=== PATIENT | male | born 1970 | race African-American/Black ===

== ENCOUNTER 2018-01-08 12:00 | Inpatient (IN) | payer OTHER ==
[2018-01-08] MEDS ORDERED: NICOTINE POLACRILEX 2 MG GUM BUC PRN (13:03)
[2018-01-08] MEDS ORDERED: guaiFENesin/D-METHORPHAN HB 10 ML UNIT-DOSE CUPS PO PRN (13:03)
[2018-01-08] MEDS ORDERED: MENTHOL/PHENOL 1 EACH UD MM PRN (13:03)
[2018-01-08] MEDS ORDERED: ACETAMINOPHEN 325 MG TABLET (FP) PO PRN (13:03)
[2018-01-08] MEDS ORDERED: MAG HYDROX/AL HYDROX/SIMETH 30 ML UNIT-DOSE CUP PO PRN (13:03)
[2018-01-08] MEDS ORDERED: MAGNESIUM CITRATE 300 ML BOTTLE PO PRN (13:03)
[2018-01-08] MEDS ORDERED: MAGNESIUM HYDROX 2400MG/30ML ORAL SUSPENSION 30 ML CUP PO PRN (13:03)
[2018-01-08] MEDS ORDERED: P-EPHED 60MG/TRIPROLIDI 2.5MG TABLET PO PRN (13:03)
[2018-01-08] MEDS ORDERED: LOPERAMIDE HCL 2 MG CAPSULE PO PRN (13:03)
--- NOTE | 2018-01-08 13:09 | HP ---
DAWN RAMIREZ Rehab Assess/Revision - Vital signs Vital Signs: Vital Signs Period Temp Pulse Resp BP Sys/Hull Pulse Ox Last 24 Hr 98.2 F 76 19 143/100 - Findings Detox History & Physical reviewed: Yes Concur with findings: Yes Comments/Additional Findings: PATIENT'S MEDICAL / MEDICATION HISTORY REVIEWED PRIOR TO DISCHARGE FROM DETOX UNIT. PATIENT WAS DISCHARGED FROM DETOX UNIT TO BE TAKEN TO REHAB UNIT IN STABLE MEDICAL CONDITION. Inpatient Rehab Admission - Initial Determination Are CD services needed?: Yes Free of communicable disease: Yes Not in need of hospitalization: Yes - Rehab Admission Criteria Previous failed treatment: Yes Comorbidities: Yes Patient is meeting Inpatient Rehab admission criteria:: Yes ( )
--- NOTE | 2018-01-08 14:29 | HP ---
Psychiatrist Admission - Data Date of interview: 01/08/18 Admission source: 3N Identifying data: This is the second [facility] Inpatient Rehabilitation admission for this 47 years old single Black male, father of 4 children, unemployed on public assistance, homeless Medical History: Significant for hypertension and history of surgery for umbolical hernia epair. Smokes 6 cigarettes daily Psychiatric History: Denies history of previous psychiatric treatment Physical/Sexual Abuse/Trauma History: Denies history of emotional, physical or sexual abuse as well as DV relationship. No service Additional Comment: Reports history of multiple arrests including 3 felony convictions. Denies being on parole/probation at present Vital Signs: Vital Signs - 24 hr 01/08/18 12:45 Temperature 98.2 F Pulse Rate 76 Respiratory 19 Rate Blood Pressure 143/100 Allergies/Adverse Reactions: Allergies Allergy/AdvReac Type Severity Reaction Status Date / Time No Known Allergies Allergy Verified 01/03/18 16:46 Date of last physical exam: 01/03/18 Concur with the findings of this exam: Yes - Substance Abuse/Tx History Hx Alcohol Use: No Hx Substance Use: Yes Substance Use Type: Cocaine (Started using cocaine at age 23, consumes 4-6 vials daily. Last used on 01/02/18), Heroin (Started using heroin at age 23, consumes 10 nbags daily. Lastused on 01/03/18) Hx Substance Use Treatment: Yes (4 previous inpt detox & one inpt rehab admissions @ [facility]) Mental Status Exam - Mental Status Exam Alert and Oriented to: Time, Place, Person Cognitive Function: Fair Patient Appearance: Well Groomed Mood: Hopeful, Euthymic Affect: Appropriate Patient Behavior: Cooperative Speech Pattern: Clear Voice Loudness: Normal Thought Process: Intact, Goal Oriented Thought Disorder: Not Present Hallucinations: Denies Suicidal Ideation: Denies Homicidal Ideation: Denies Insight/Judgement: Fair Sleep: Poorly Appetite: Good Muscle strength/Tone: Normal Gait/Station: Normal Psychiatric Findings - Problem List (Katy 1, 2,3) (1) Opioid dependence Current Visit: No Status: Active (2) Cocaine dependence Current Visit: No Status: Chronic (3) Nicotine dependence Current Visit: No Status: Chronic (4) Substance-induced sleep disorder Current Visit: Yes Status: Acute (5) Essential hypertension Current Visit: No Status: Chronic Comment: reports not taking medications at this time - Initial Treatment Plan Initial Treatment Plan: 1) Start Melatonin 5 mg po HS prn for insomnia. 2) Monitor progress
[2018-01-08] MEDS: THIAMINE HCL 100 MG TABLET (FP) PO SCH (21:09)
[2018-01-08] MEDS: MELATONIN 5 MG TABLETS PO PRN (21:09)
[2018-01-09] MEDS ORDERED: hydrOXYzine PAMOATE 50 MG CAPSULE (FP) PO ONE (03:42)
--- NOTE | 2018-01-09 05:01 | PN ---
S Progress Note Note: Patient complained of withdrawal symptoms. Vital Signs Temperature 98.2 F 01/09/18 06:47 Pulse Rate 80 01/09/18 06:47 Respiratory Rate 18 01/09/18 06:47 Blood Pressure 147/96 01/09/18 06:47 O2 Sat by Pulse Oximetry (%) Action: Vistaril 50mg rablet oral ordered
[2018-01-09] MEDS: PRENATAL VITAMINS W/ FOLIC ACID TABLET (FP) PO SCH (09:58)
[2018-01-09] MEDS: LISINOPRIL 10 MG TABLET (FP) PO SCH (09:58)
[2018-01-09] MEDS: MINERAL OIL/PETROLAT/WATER TOPICAL CREAM 113 GM JAR TP SCH (09:59)
[2018-01-09] MEDS: NICOTINE 14 MG/24 HOURS TOPICAL PATCH TD SCH (09:59)
[2018-01-09] MEDS: THIAMINE HCL 100 MG TABLET (FP) PO SCH (21:34)
[2018-01-09] MEDS: MELATONIN 5 MG TABLETS PO PRN (21:34)
[2018-01-10] MEDS: hydrOXYzine PAMOATE 50 MG CAPSULE (FP) PO PRN ×4 (06:28→21:32)
[2018-01-10] MEDS: PRENATAL VITAMINS W/ FOLIC ACID TABLET (FP) PO SCH (10:06)
[2018-01-10] MEDS: LISINOPRIL 10 MG TABLET (FP) PO SCH (10:06)
[2018-01-10] MEDS: NICOTINE 14 MG/24 HOURS TOPICAL PATCH TD SCH (10:07)
[2018-01-10] MEDS: MINERAL OIL/PETROLAT/WATER TOPICAL CREAM 113 GM JAR TP SCH (10:08)
[2018-01-10] MEDS: MELATONIN 5 MG TABLETS PO PRN (21:32)
[2018-01-10] MEDS: THIAMINE HCL 100 MG TABLET (FP) PO SCH (21:32)
[2018-01-10] MEDS ORDERED: PT OWN MED DRAWER 7, Y5N ONE (22:04)
[2018-01-11] MEDS: IBUPROFEN 400 MG TABLET (FP) PO PRN (06:44)
[2018-01-11] MEDS ORDERED: PT OWN MED DRAWER 7, Y5N ONE (08:27)
[2018-01-11] MEDS: LISINOPRIL 10 MG TABLET (FP) PO SCH (09:32)
[2018-01-11] MEDS: PRENATAL VITAMINS W/ FOLIC ACID TABLET (FP) PO SCH (09:32)
[2018-01-11] MEDS: NICOTINE 14 MG/24 HOURS TOPICAL PATCH TD SCH (09:33)
[2018-01-11] MEDS: MINERAL OIL/PETROLAT/WATER TOPICAL CREAM 113 GM JAR TP SCH (09:35)
[2018-01-11] MEDS: THIAMINE HCL 100 MG TABLET (FP) PO SCH (21:08)
[2018-01-11] MEDS: hydrOXYzine PAMOATE 50 MG CAPSULE (FP) PO PRN (21:09)
[2018-01-12] MEDS: hydrOXYzine PAMOATE 50 MG CAPSULE (FP) PO PRN (06:07)
[2018-01-12] MEDS: IBUPROFEN 400 MG TABLET (FP) PO PRN (06:07)
[2018-01-12] MEDS ORDERED: PT OWN MED DRAWER 7, Y5N ONE (08:36)
[2018-01-12] MEDS: PRENATAL VITAMINS W/ FOLIC ACID TABLET (FP) PO SCH (09:35)
[2018-01-12] MEDS: NICOTINE 14 MG/24 HOURS TOPICAL PATCH TD SCH (09:35)
[2018-01-12] MEDS: LISINOPRIL 10 MG TABLET (FP) PO SCH (09:35)
[2018-01-12] MEDS: MINERAL OIL/PETROLAT/WATER TOPICAL CREAM 113 GM JAR TP SCH (09:36)
[2018-01-12] MEDS: THIAMINE HCL 100 MG TABLET (FP) PO SCH (21:33)
[2018-01-12] MEDS: SUVOREXANT 10 MG TABLET PO PRN (22:06)
[2018-01-12] MEDS ORDERED: cloNIDine HCL 0.1 MG TABLET PO ONE (23:15)
[2018-01-13] MEDS: NICOTINE 14 MG/24 HOURS TOPICAL PATCH TD SCH (09:57)
[2018-01-13] MEDS: LISINOPRIL 10 MG TABLET (FP) PO SCH (09:57)
[2018-01-13] MEDS: PRENATAL VITAMINS W/ FOLIC ACID TABLET (FP) PO SCH (09:57)
[2018-01-13] MEDS: MINERAL OIL/PETROLAT/WATER TOPICAL CREAM 113 GM JAR TP SCH (09:59)
[2018-01-13] MEDS: IBUPROFEN 400 MG TABLET (FP) PO PRN (09:59)
--- NOTE | 2018-01-13 14:53 | PN ---
[facility] Progress Note Note: PATIENT SEEN FOR EVALUATION OF ELEVATED BP. PATIENT DENIES CP, SOB AND DIZZINESS. PATIENT CURRENTLY HAS HTN AND TAKES LISINOPRIL 10MG DAILY. Vital Signs Temperature 97.3 F L 01/13/18 07:07 Pulse Rate 82 01/13/18 07:07 Respiratory Rate 18 01/13/18 07:07 Blood Pressure 122/90 01/13/18 07:07 O2 Sat by Pulse Oximetry (%) PE: SKIN WARM AND DRY CAR: S1S2 RESP: CTA BL EXT: NO EDEMA A/P: ELEVATED BP DIET MODIFICATIONS REVIEWED WILL INCREASE LISINOPRIL 20MG DAILY WILL CONTINUE TO MONITOR CLINICALLY.
[2018-01-13] MEDS: SUVOREXANT 10 MG TABLET PO PRN (21:38)
[2018-01-13] MEDS: hydrOXYzine PAMOATE 50 MG CAPSULE (FP) PO PRN (21:38)
[2018-01-13] MEDS: THIAMINE HCL 100 MG TABLET (FP) PO SCH (21:38)
[2018-01-13] MEDS: METHYL SALICYLATE/MENTHOL OINT 30 GM TUBE TP SCH (22:00)
[2018-01-14] MEDS: LISINOPRIL 20 MG TABLET (FP) PO SCH (09:55)
[2018-01-14] MEDS: NICOTINE 14 MG/24 HOURS TOPICAL PATCH TD SCH (09:55)
[2018-01-14] MEDS: PRENATAL VITAMINS W/ FOLIC ACID TABLET (FP) PO SCH (09:55)
[2018-01-14] MEDS: METHYL SALICYLATE/MENTHOL OINT 30 GM TUBE TP SCH ×2 (09:56→21:10)
[2018-01-14] MEDS: hydrOXYzine PAMOATE 50 MG CAPSULE (FP) PO PRN (09:56)
[2018-01-14] MEDS: MINERAL OIL/PETROLAT/WATER TOPICAL CREAM 113 GM JAR TP SCH (09:57)
[2018-01-14] MEDS: THIAMINE HCL 100 MG TABLET (FP) PO SCH (21:10)
[2018-01-14] MEDS: SUVOREXANT 10 MG TABLET PO PRN (21:12)
[2018-01-15] MEDS: METHYL SALICYLATE/MENTHOL OINT 30 GM TUBE TP SCH ×2 (11:02→21:32)
[2018-01-15] MEDS: NICOTINE 14 MG/24 HOURS TOPICAL PATCH TD SCH (11:02)
[2018-01-15] MEDS: MINERAL OIL/PETROLAT/WATER TOPICAL CREAM 113 GM JAR TP SCH (11:02)
[2018-01-15] MEDS: LISINOPRIL 20 MG TABLET (FP) PO SCH (11:02)
[2018-01-15] MEDS: PRENATAL VITAMINS W/ FOLIC ACID TABLET (FP) PO SCH (11:02)
[2018-01-15] MEDS: THIAMINE HCL 100 MG TABLET (FP) PO SCH (21:33)
[2018-01-15] MEDS: SUVOREXANT 10 MG TABLET PO PRN (21:34)
[2018-01-15] MEDS ORDERED: SUVOREXANT 10 MG TABLET PO PRN (22:00)
[2018-01-16] MEDS: METHYL SALICYLATE/MENTHOL OINT 30 GM TUBE TP SCH ×2 (10:07→21:42)
[2018-01-16] MEDS: NICOTINE 14 MG/24 HOURS TOPICAL PATCH TD SCH (10:07)
[2018-01-16] MEDS: LISINOPRIL 20 MG TABLET (FP) PO SCH (10:07)
[2018-01-16] MEDS: PRENATAL VITAMINS W/ FOLIC ACID TABLET (FP) PO SCH (10:07)
[2018-01-16] MEDS: MINERAL OIL/PETROLAT/WATER TOPICAL CREAM 113 GM JAR TP SCH (10:07)
--- NOTE | 2018-01-16 14:29 | PN ---
S Progress Note Note: Vital Signs (72 hours) 01/14/18 01/14/18 01/14/18 00:30 03:30 06:48 Temperature 97.6 F Pulse Rate 87 Respiratory 18 18 20 Rate Blood Pressure 135/88 01/14/18 01/14/18 01/15/18 10:00 12:24 00:30 Temperature Pulse Rate 95 H 77 Respiratory 20 18 Rate Blood Pressure 154/102 144/95 01/15/18 01/15/18 01/15/18 03:30 06:51 10:00 Temperature 97.6 F Pulse Rate 86 94 H Respiratory 18 20 18 Rate Blood Pressure 135/92 154/88 01/16/18 01/16/18 01/16/18 00:30 03:30 06:59 Temperature 98.2 F Pulse Rate 83 Respiratory 18 18 20 Rate Blood Pressure 149/91 01/16/18 10:00 Temperature Pulse Rate 94 H Respiratory 18 Rate Blood Pressure 162/101 Patient on lisinopril 20 mg qd with elevated BP. Will ad HCTZ 12.5 mg qd low sodium diet increase fluids continue to monitor
[2018-01-16] MEDS ORDERED: HYDROCHLOROTHIAZIDE 25 MG TABLET (FP) PO SCH (14:30)
[2018-01-16] MEDS: HYDROCHLOROTHIAZIDE 12.5 MG CAPSULE (FP) PO SCH (14:56)
[2018-01-16] MEDS: THIAMINE HCL 100 MG TABLET (FP) PO SCH (21:41)
[2018-01-17] MEDS: LISINOPRIL 20 MG TABLET (FP) PO SCH (10:09)
[2018-01-17] MEDS: hydrOXYzine PAMOATE 50 MG CAPSULE (FP) PO PRN ×2 (10:09→21:24)
[2018-01-17] MEDS: HYDROCHLOROTHIAZIDE 12.5 MG CAPSULE (FP) PO SCH (10:09)
[2018-01-17] MEDS: PRENATAL VITAMINS W/ FOLIC ACID TABLET (FP) PO SCH (10:09)
[2018-01-17] MEDS: NICOTINE 14 MG/24 HOURS TOPICAL PATCH TD SCH (10:10)
[2018-01-17] MEDS: METHYL SALICYLATE/MENTHOL OINT 30 GM TUBE TP SCH ×2 (10:28→21:23)
[2018-01-17] MEDS: MINERAL OIL/PETROLAT/WATER TOPICAL CREAM 113 GM JAR TP SCH (10:28)
[2018-01-17] MEDS ORDERED: PT OWN MED DRAWER 7, Y5N ONE (18:34)
[2018-01-17] MEDS: THIAMINE HCL 100 MG TABLET (FP) PO SCH (21:23)
[2018-01-18] MEDS: NICOTINE 14 MG/24 HOURS TOPICAL PATCH TD SCH (09:34)
[2018-01-18] MEDS: HYDROCHLOROTHIAZIDE 12.5 MG CAPSULE (FP) PO SCH (09:34)
[2018-01-18] MEDS: LISINOPRIL 20 MG TABLET (FP) PO SCH (09:34)
[2018-01-18] MEDS: PRENATAL VITAMINS W/ FOLIC ACID TABLET (FP) PO SCH (09:34)
[2018-01-18] MEDS: METHYL SALICYLATE/MENTHOL OINT 30 GM TUBE TP SCH ×2 (09:35→23:15)
[2018-01-18] MEDS: MINERAL OIL/PETROLAT/WATER TOPICAL CREAM 113 GM JAR TP SCH (09:35)
--- NOTE | 2018-01-18 15:39 | PN ---
[facility] Progress Note Note: Psychiatry Attending's note : Called for renewal of belsomra. Chart reviewed.Dose verified. No report of adverse effects. Continuation requested by the patient. Informed consent : revisited with patient.\ Mr Bartlett is in agreement with careplan. Belsomra 10 mg po hs prn.Order renewed.
[2018-01-18] MEDS: THIAMINE HCL 100 MG TABLET (FP) PO SCH (21:24)
[2018-01-18] MEDS: hydrOXYzine PAMOATE 50 MG CAPSULE (FP) PO PRN (21:25)
[2018-01-18] MEDS ORDERED: SUVOREXANT 10 MG TABLET PO PRN (22:00)
[2018-01-19] MEDS: PRENATAL VITAMINS W/ FOLIC ACID TABLET (FP) PO SCH (09:48)
[2018-01-19] MEDS: NICOTINE 14 MG/24 HOURS TOPICAL PATCH TD SCH (09:49)
[2018-01-19] MEDS: HYDROCHLOROTHIAZIDE 12.5 MG CAPSULE (FP) PO SCH (09:49)
[2018-01-19] MEDS: MINERAL OIL/PETROLAT/WATER TOPICAL CREAM 113 GM JAR TP SCH (09:49)
[2018-01-19] MEDS: LISINOPRIL 20 MG TABLET (FP) PO SCH (09:49)
[2018-01-19] MEDS: METHYL SALICYLATE/MENTHOL OINT 30 GM TUBE TP SCH ×2 (09:49→22:00)
[2018-01-19] MEDS ORDERED: PT OWN MED DRAWER 7, Y5N ONE (20:04)
[2018-01-19] MEDS: THIAMINE HCL 100 MG TABLET (FP) PO SCH (22:00)
[2018-01-19] MEDS: hydrOXYzine PAMOATE 50 MG CAPSULE (FP) PO PRN (22:01)
[2018-01-20] MEDS ORDERED: PT OWN MED DRAWER 7, Y5N ONE ×2 (08:33→19:52)
[2018-01-20] MEDS: HYDROCHLOROTHIAZIDE 12.5 MG CAPSULE (FP) PO SCH (10:04)
[2018-01-20] MEDS: METHYL SALICYLATE/MENTHOL OINT 30 GM TUBE TP SCH ×2 (10:04→21:35)
[2018-01-20] MEDS: MINERAL OIL/PETROLAT/WATER TOPICAL CREAM 113 GM JAR TP SCH (10:04)
[2018-01-20] MEDS: NICOTINE 14 MG/24 HOURS TOPICAL PATCH TD SCH (10:05)
[2018-01-20] MEDS: LISINOPRIL 20 MG TABLET (FP) PO SCH (10:05)
[2018-01-20] MEDS: PRENATAL VITAMINS W/ FOLIC ACID TABLET (FP) PO SCH (10:05)
[2018-01-20] MEDS: hydrOXYzine PAMOATE 50 MG CAPSULE (FP) PO PRN (21:36)
[2018-01-20] MEDS: THIAMINE HCL 100 MG TABLET (FP) PO SCH (21:36)
[2018-01-21] MEDS: HYDROCHLOROTHIAZIDE 12.5 MG CAPSULE (FP) PO SCH (10:13)
[2018-01-21] MEDS: LISINOPRIL 20 MG TABLET (FP) PO SCH (10:13)
[2018-01-21] MEDS: PRENATAL VITAMINS W/ FOLIC ACID TABLET (FP) PO SCH (10:13)
[2018-01-21] MEDS: METHYL SALICYLATE/MENTHOL OINT 30 GM TUBE TP SCH ×2 (10:14→22:01)
[2018-01-21] MEDS: MINERAL OIL/PETROLAT/WATER TOPICAL CREAM 113 GM JAR TP SCH (10:14)
[2018-01-21] MEDS: NICOTINE 14 MG/24 HOURS TOPICAL PATCH TD SCH (10:14)
--- NOTE | 2018-01-21 12:53 | HP ---
DAWN RAMIREZ Rehab Assess/Revision - Admission History Admitted to Rehab from: [facility] [place] Date of Admission to Rehab: 01/21/18 - Vital signs Vital Signs: Vital Signs Period Temp Pulse Resp BP Sys/Hull Pulse Ox Last 24 Hr 97.9 F 89-90 18-20 121-143/83-87 - Findings Detox History & Physical reviewed: Yes Concur with findings: Yes Comments/Additional Findings: for rehab as protocol Inpatient Rehab Admission - Initial Determination Are CD services needed?: Yes Free of communicable disease: Yes Not in need of hospitalization: Yes - Rehab Admission Criteria Previous failed treatment: Yes Poor recovery environment: Yes Comorbidities: Yes Lacks judgement: No Patient is meeting Inpatient Rehab admission criteria:: Yes
[2018-01-21] MEDS ORDERED: MAGNESIUM CITRATE 300 ML BOTTLE PO PRN (12:56)
[2018-01-21] MEDS ORDERED: guaiFENesin/D-METHORPHAN HB 10 ML UNIT-DOSE CUPS PO PRN (12:56)
[2018-01-21] MEDS ORDERED: MAGNESIUM HYDROX 2400MG/30ML ORAL SUSPENSION 30 ML CUP PO PRN (12:56)
[2018-01-21] MEDS ORDERED: ACETAMINOPHEN 325 MG TABLET (FP) PO PRN (12:56)
[2018-01-21] MEDS ORDERED: MAG HYDROX/AL HYDROX/SIMETH 30 ML UNIT-DOSE CUP PO PRN (12:56)
[2018-01-21] MEDS ORDERED: LOPERAMIDE HCL 2 MG CAPSULE PO PRN (12:56)
[2018-01-21] MEDS ORDERED: MENTHOL/PHENOL 1 EACH UD MM PRN (12:56)
[2018-01-21] MEDS ORDERED: hydrOXYzine PAMOATE 50 MG CAPSULE (FP) PO PRN (12:56)
[2018-01-21] MEDS ORDERED: P-EPHED 60MG/TRIPROLIDI 2.5MG TABLET PO PRN (12:56)
[2018-01-21] MEDS ORDERED: IBUPROFEN 400 MG TABLET (FP) PO PRN (12:56)
--- NOTE | 2018-01-21 13:53 | PN ---
[facility] Progress Note Note: please disregard the note on this patient on 01/21/18 at 12.51,note belong to other patient
[2018-01-21] MEDS ORDERED: metFORMIN HCL 500 MG TABLET (FP) PO SCH (16:30)
[2018-01-21] MEDS ORDERED: INSULIN (NOVOLOG) ASPART 100 UNITS/ML 10ML VIAL SQ SCH (16:30)
[2018-01-21] MEDS: THIAMINE HCL 100 MG TABLET (FP) PO SCH (21:58)
[2018-01-21] MEDS ORDERED: MELATONIN 5 MG TABLETS PO PRN (22:00)
[2018-01-21] MEDS ORDERED: THIAMINE HCL 100 MG TABLET (FP) PO SCH (22:00)
[2018-01-21] MEDS: SUVOREXANT 10 MG TABLET PO PRN (22:01)
[2018-01-22] MEDS: HYDROCHLOROTHIAZIDE 12.5 MG CAPSULE (FP) PO SCH (09:54)
[2018-01-22] MEDS: LISINOPRIL 20 MG TABLET (FP) PO SCH (09:54)
[2018-01-22] MEDS: NICOTINE 14 MG/24 HOURS TOPICAL PATCH TD SCH (09:55)
[2018-01-22] MEDS: METHYL SALICYLATE/MENTHOL OINT 30 GM TUBE TP SCH ×2 (09:56→21:19)
[2018-01-22] MEDS ORDERED: PT OWN MED DRAWER 7, Y5N ONE (09:56)
[2018-01-22] MEDS ORDERED: NICOTINE 14 MG/24 HOURS TOPICAL PATCH TD SCH (10:00)
[2018-01-22] MEDS ORDERED: PRENATAL VITAMINS W/ FOLIC ACID TABLET (FP) PO SCH (10:00)
[2018-01-22] MEDS: MINERAL OIL/PETROLAT/WATER TOPICAL CREAM 113 GM JAR TP SCH (10:19)
[2018-01-22] MEDS: SUVOREXANT 10 MG TABLET PO PRN (21:21)
[2018-01-23] MEDS: LISINOPRIL 20 MG TABLET (FP) PO SCH (09:38)
[2018-01-23] MEDS: METHYL SALICYLATE/MENTHOL OINT 30 GM TUBE TP SCH ×2 (09:38→21:43)
[2018-01-23] MEDS: MINERAL OIL/PETROLAT/WATER TOPICAL CREAM 113 GM JAR TP SCH (09:38)
[2018-01-23] MEDS: HYDROCHLOROTHIAZIDE 12.5 MG CAPSULE (FP) PO SCH (09:38)
[2018-01-23] MEDS: NICOTINE 14 MG/24 HOURS TOPICAL PATCH TD SCH (09:38)
[2018-01-23] MEDS ORDERED: PT OWN MED DRAWER 7, Y5N ONE (19:31)
[2018-01-23] MEDS: SUVOREXANT 10 MG TABLET PO PRN (21:41)
[2018-01-24] MEDS: MINERAL OIL/PETROLAT/WATER TOPICAL CREAM 113 GM JAR TP SCH (10:07)
[2018-01-24] MEDS: METHYL SALICYLATE/MENTHOL OINT 30 GM TUBE TP SCH ×2 (10:07→22:27)
[2018-01-24] MEDS: LISINOPRIL 20 MG TABLET (FP) PO SCH (10:07)
[2018-01-24] MEDS: NICOTINE 14 MG/24 HOURS TOPICAL PATCH TD SCH (10:07)
[2018-01-24] MEDS: PRENATAL VITAMINS W/ FOLIC ACID TABLET (FP) PO SCH (10:07)
[2018-01-24] MEDS: HYDROCHLOROTHIAZIDE 12.5 MG CAPSULE (FP) PO SCH (10:07)
[2018-01-24] MEDS ORDERED: INSULIN (NOVOLOG MIX 70/30) 100 UNITS/ML MDV SQ ONE (17:00)
[2018-01-24] MEDS: SUVOREXANT 10 MG TABLET PO PRN (21:27)
[2018-01-25] MEDS ORDERED: PT OWN MED DRAWER 7, Y5N ONE ×2 (08:39→19:56)
[2018-01-25] MEDS: NICOTINE 14 MG/24 HOURS TOPICAL PATCH TD SCH (09:27)
[2018-01-25] MEDS: LISINOPRIL 20 MG TABLET (FP) PO SCH (09:27)
[2018-01-25] MEDS: HYDROCHLOROTHIAZIDE 12.5 MG CAPSULE (FP) PO SCH (09:27)
[2018-01-25] MEDS: PRENATAL VITAMINS W/ FOLIC ACID TABLET (FP) PO SCH (09:27)
[2018-01-25] MEDS: MINERAL OIL/PETROLAT/WATER TOPICAL CREAM 113 GM JAR TP SCH (09:27)
[2018-01-25] MEDS: METHYL SALICYLATE/MENTHOL OINT 30 GM TUBE TP SCH ×2 (09:27→21:19)
[2018-01-25] MEDS: SUVOREXANT 10 MG TABLET PO PRN (21:21)
[2018-01-26] MEDS: PRENATAL VITAMINS W/ FOLIC ACID TABLET (FP) PO SCH (09:30)
[2018-01-26] MEDS: MINERAL OIL/PETROLAT/WATER TOPICAL CREAM 113 GM JAR TP SCH (09:30)
[2018-01-26] MEDS: NICOTINE 14 MG/24 HOURS TOPICAL PATCH TD SCH (09:30)
[2018-01-26] MEDS: LISINOPRIL 20 MG TABLET (FP) PO SCH (09:30)
[2018-01-26] MEDS: HYDROCHLOROTHIAZIDE 12.5 MG CAPSULE (FP) PO SCH (09:30)
[2018-01-26] MEDS: METHYL SALICYLATE/MENTHOL OINT 30 GM TUBE TP SCH ×2 (09:30→23:30)
[2018-01-26] MEDS: SUVOREXANT 10 MG TABLET PO PRN (21:30)
[2018-01-27] MEDS: NICOTINE 14 MG/24 HOURS TOPICAL PATCH TD SCH (09:51)
[2018-01-27] MEDS: MINERAL OIL/PETROLAT/WATER TOPICAL CREAM 113 GM JAR TP SCH (09:51)
[2018-01-27] MEDS: METHYL SALICYLATE/MENTHOL OINT 30 GM TUBE TP SCH ×2 (09:51→21:20)
[2018-01-27] MEDS: PRENATAL VITAMINS W/ FOLIC ACID TABLET (FP) PO SCH (09:52)
[2018-01-27] MEDS: LISINOPRIL 20 MG TABLET (FP) PO SCH (09:52)
[2018-01-27] MEDS: HYDROCHLOROTHIAZIDE 12.5 MG CAPSULE (FP) PO SCH (09:52)
[2018-01-27] MEDS: SUVOREXANT 10 MG TABLET PO PRN (21:20)
[2018-01-28] MEDS: PRENATAL VITAMINS W/ FOLIC ACID TABLET (FP) PO SCH (10:03)
[2018-01-28] MEDS: MINERAL OIL/PETROLAT/WATER TOPICAL CREAM 113 GM JAR TP SCH (10:04)
[2018-01-28] MEDS: LISINOPRIL 20 MG TABLET (FP) PO SCH (10:04)
[2018-01-28] MEDS: METHYL SALICYLATE/MENTHOL OINT 30 GM TUBE TP SCH ×2 (10:04→21:49)
[2018-01-28] MEDS: HYDROCHLOROTHIAZIDE 12.5 MG CAPSULE (FP) PO SCH (10:04)
[2018-01-28] MEDS: NICOTINE 14 MG/24 HOURS TOPICAL PATCH TD SCH (10:04)
--- NOTE | 2018-01-28 21:39 | PN ---
DAWN Progress Note Note: Psychiatrist professional fee coder note; As per hursing report patient needs Belsomra to renew order Order issued.
[2018-01-28] MEDS: SUVOREXANT 10 MG TABLET PO PRN (21:49)
[2018-01-29] MEDS: HYDROCHLOROTHIAZIDE 12.5 MG CAPSULE (FP) PO SCH (09:41)
[2018-01-29] MEDS: MINERAL OIL/PETROLAT/WATER TOPICAL CREAM 113 GM JAR TP SCH (09:41)
[2018-01-29] MEDS: LISINOPRIL 20 MG TABLET (FP) PO SCH (09:41)
[2018-01-29] MEDS: PRENATAL VITAMINS W/ FOLIC ACID TABLET (FP) PO SCH (09:41)
[2018-01-29] MEDS: NICOTINE 14 MG/24 HOURS TOPICAL PATCH TD SCH (09:42)
[2018-01-29] MEDS: METHYL SALICYLATE/MENTHOL OINT 30 GM TUBE TP SCH ×2 (09:42→21:22)
[2018-01-29] MEDS: SUVOREXANT 10 MG TABLET PO PRN (21:23)
[2018-01-30] MEDS: MINERAL OIL/PETROLAT/WATER TOPICAL CREAM 113 GM JAR TP SCH (09:36)
[2018-01-30] MEDS: PRENATAL VITAMINS W/ FOLIC ACID TABLET (FP) PO SCH (09:36)
[2018-01-30] MEDS: HYDROCHLOROTHIAZIDE 12.5 MG CAPSULE (FP) PO SCH (09:36)
[2018-01-30] MEDS: LISINOPRIL 20 MG TABLET (FP) PO SCH (09:36)
[2018-01-30] MEDS: METHYL SALICYLATE/MENTHOL OINT 30 GM TUBE TP SCH ×2 (09:36→21:12)
[2018-01-30] MEDS: NICOTINE 14 MG/24 HOURS TOPICAL PATCH TD SCH (09:37)
[2018-01-30] MEDS: SUVOREXANT 10 MG TABLET PO PRN (21:12)
[2018-01-31] MEDS: HYDROCHLOROTHIAZIDE 12.5 MG CAPSULE (FP) PO SCH (09:50)
[2018-01-31] MEDS: PRENATAL VITAMINS W/ FOLIC ACID TABLET (FP) PO SCH (09:50)
[2018-01-31] MEDS: NICOTINE 14 MG/24 HOURS TOPICAL PATCH TD SCH (09:51)
[2018-01-31] MEDS: LISINOPRIL 20 MG TABLET (FP) PO SCH (09:51)
[2018-01-31] MEDS: METHYL SALICYLATE/MENTHOL OINT 30 GM TUBE TP SCH ×2 (09:53→21:28)
[2018-01-31] MEDS: MINERAL OIL/PETROLAT/WATER TOPICAL CREAM 113 GM JAR TP SCH (09:53)
[2018-01-31] MEDS: SUVOREXANT 10 MG TABLET PO PRN (21:28)
[2018-02-01] MEDS: HYDROCHLOROTHIAZIDE 12.5 MG CAPSULE (FP) PO SCH (09:35)
[2018-02-01] MEDS: LISINOPRIL 20 MG TABLET (FP) PO SCH (09:35)
[2018-02-01] MEDS: PRENATAL VITAMINS W/ FOLIC ACID TABLET (FP) PO SCH (09:35)
[2018-02-01] MEDS: METHYL SALICYLATE/MENTHOL OINT 30 GM TUBE TP SCH ×2 (09:36→21:41)
[2018-02-01] MEDS: NICOTINE 14 MG/24 HOURS TOPICAL PATCH TD SCH (09:36)
[2018-02-01] MEDS: MINERAL OIL/PETROLAT/WATER TOPICAL CREAM 113 GM JAR TP SCH (09:36)
[2018-02-01] MEDS: SUVOREXANT 10 MG TABLET PO PRN (21:43)
[2018-02-02] MEDS: MINERAL OIL/PETROLAT/WATER TOPICAL CREAM 113 GM JAR TP SCH (09:51)
[2018-02-02] MEDS: HYDROCHLOROTHIAZIDE 12.5 MG CAPSULE (FP) PO SCH (09:51)
[2018-02-02] MEDS: PRENATAL VITAMINS W/ FOLIC ACID TABLET (FP) PO SCH (09:51)
[2018-02-02] MEDS: LISINOPRIL 20 MG TABLET (FP) PO SCH (09:51)
[2018-02-02] MEDS: METHYL SALICYLATE/MENTHOL OINT 30 GM TUBE TP SCH ×2 (09:51→21:19)
[2018-02-02] MEDS: NICOTINE 14 MG/24 HOURS TOPICAL PATCH TD SCH (09:52)
[2018-02-02] MEDS: SUVOREXANT 10 MG TABLET PO PRN (21:19)
[2018-02-03] MEDS: NICOTINE 14 MG/24 HOURS TOPICAL PATCH TD SCH (09:57)
[2018-02-03] MEDS: MINERAL OIL/PETROLAT/WATER TOPICAL CREAM 113 GM JAR TP SCH (09:57)
[2018-02-03] MEDS: METHYL SALICYLATE/MENTHOL OINT 30 GM TUBE TP SCH ×2 (09:57→21:39)
[2018-02-03] MEDS: LISINOPRIL 20 MG TABLET (FP) PO SCH (09:57)
[2018-02-03] MEDS: HYDROCHLOROTHIAZIDE 12.5 MG CAPSULE (FP) PO SCH (09:57)
[2018-02-03] MEDS: PRENATAL VITAMINS W/ FOLIC ACID TABLET (FP) PO SCH (09:57)
[2018-02-03] MEDS: SUVOREXANT 10 MG TABLET PO PRN (21:39)
[2018-02-04] MEDS: LISINOPRIL 20 MG TABLET (FP) PO SCH (09:57)
[2018-02-04] MEDS: PRENATAL VITAMINS W/ FOLIC ACID TABLET (FP) PO SCH (09:57)
[2018-02-04] MEDS: HYDROCHLOROTHIAZIDE 12.5 MG CAPSULE (FP) PO SCH (09:57)
[2018-02-04] MEDS: NICOTINE 14 MG/24 HOURS TOPICAL PATCH TD SCH (09:58)
[2018-02-04] MEDS: METHYL SALICYLATE/MENTHOL OINT 30 GM TUBE TP SCH ×2 (10:35→21:51)
[2018-02-04] MEDS: MINERAL OIL/PETROLAT/WATER TOPICAL CREAM 113 GM JAR TP SCH (10:37)
--- NOTE | 2018-02-04 14:09 | PN ---
[facility] Progress Note Note: Vital Signs Temperature 97.6 F 02/04/18 06:57 Pulse Rate 91 H 02/04/18 09:58 Respiratory Rate 18 02/04/18 09:58 Blood Pressure 144/83 02/04/18 09:58 O2 Sat by Pulse Oximetry (%) Patient schedule to complete program 02/05/18. HTN meds sent to [facility]. Patient in medically stable condition. Patient to follow up with primary care provider 1 -2 weeks post discharge.
--- NOTE | 2018-02-04 15:29 | PN ---
Psychiatric Progress Note Vital Signs: Vital Signs Period Temp Pulse Resp BP Sys/Hull Pulse Ox Last 24 Hr 97.6 F 88-91 16-18 107-144/71-83 Date of Session: 02/04/18 Chief Complaint:: "Discharge" HPI: Patient was admitted to for heroin and cocaine dependence. ROS: Significant for hypertension and history of surgery for umbilical hernia repair. Current Medications: Active Medications Generic Name Dose Route Start Last Admin Trade Name Freq PRN Reason Stop Dose Admin Hydrochlorothiazide 12.5 mg 01/16/18 14:30 02/04/18 09:57 Hctz - PO 12.5 mg DAILY ARNOLD Administration Lisinopril 20 mg 01/14/18 10:00 02/04/18 09:57 Prinivil PO 20 mg DAILY ARNOLD Administration Methyl Salicylate 1 applic 01/13/18 22:00 02/04/18 10:35 [place]-Witt - TP Not Given BID ARNOLD Multi-Ingredient Lotion 1 applic 01/09/18 10:00 02/04/18 10:37 Eucerin (Small Jar) - TP Not Given DAILY ARNOLD Nicotine 14 mg 01/22/18 10:00 02/04/18 09:58 Nicoderm Patch - TD Not Given DAILY ARNOLD Multivit/Folic Acid/Iron 1 tab 01/24/18 10:00 02/04/18 09:57 Vitamins (Sjr) - PO 1 tab DAILY ARNOLD Administration Suvorexant 10 mg 02/02/18 20:06 02/03/18 21:39 Belsomra PO 10 mg HS PRN Administration INSOMNIA Medication(s) Change(s): No. Current Side Effect: No Lab tests ordered: No Lab tests reviewed: Yes Provider note:: Patient will complete the rehabilitation program on 02/05/18. He has met his treatment goals and is able to identify behaviors that contribute to relapsing. Through participation of this program patient has learned the importance of changing his behaviors and the need for more structure in his life. Pt. [facility]. Pt. was not prescribed psychotrophic medications during his stay in rehab. Pt is motivated and looking forward to the next chapter in his life. Pt denies having any thoughts or urges to hurt self or others. Patient is stable for discharge on 02/05/18. Total face to face time:: 35 Mental Status Exam - Mental Status Exam Alert and Oriented to: Time, Place, Person Cognitive Function: Good Patient Appearance: Well Groomed Mood: Hopeful Affect: Appropriate Patient Behavior: Appropriate, Cooperative Speech Pattern: Clear, Appropriate Voice Loudness: Normal Thought Process: Intact, Goal Oriented Thought Disorder: Not Present Hallucinations: Denies Suicidal Ideation: Denies Homicidal Ideation: Denies Insight/Judgement: Good Sleep: Well Appetite: Good Muscle strength/Tone: Normal Gait/Station: Normal Psychiatric Treatment Plan - Problem List (1) Substance-induced sleep disorder Current Visit: Yes (2) Opioid dependence Current Visit: No (3) Cocaine dependence Current Visit: No (4) Nicotine dependence Current Visit: No
[2018-02-04] MEDS: SUVOREXANT 10 MG TABLET PO PRN (21:47)
[2018-02-05 06:45] VITALS: BP 136/83; PULSE 78; TEMP 98
[2018-02-05] MEDS ORDERED: PT OWN MED DRAWER 7, Y5N ONE (08:32)
== END 2018-02-05 09:00 | disposition home or self-care (01) | DRG 772 ==
LOC: YASAS 12:00 → Y3W 12:01
PROVIDERS: ADMIT Psychiatry & Neurology Psychiatry; ATTEND Psychiatry & Neurology Psychiatry
PROC: HZ42ZZZ Group Counseling for Substance Abuse Treatment, Cognitive-Behavioral (ICD-10-PCS; principal; 2018-01-08)
DX: F11.20 Opioid dependence, uncomplicated (principal); F14.20 Cocaine dependence, uncomplicated; F17.210 Nicotine dependence, cigarettes, uncomplicated; F19.282 Other psychoactive substance dependence with psychoactive substance-induced sleep disorder; I10 Essential (primary) hypertension; Z59.0 Homelessness
CPT/HCPCS: J0735

== ENCOUNTER 2021-01-03 18:37 | Inpatient (IN) | payer OTHER ==
[2021-01-03 20:26] VITALS: BMI 29.8
[2021-01-03] MEDS ORDERED: MAGNESIUM CITRATE 300 ML BOTTLE PO PRN (22:56)
[2021-01-03] MEDS ORDERED: BISMUTH SUBSALICYLATE 524 MG/30 ML PO PRN (22:56)
[2021-01-03] MEDS ORDERED: MAGNESIUM HYDROX 2400MG/30ML ORAL SUSPENSION 30 ML CUP PO PRN (22:56)
[2021-01-03] MEDS ORDERED: MAG HYDROX/AL HYDROX/SIMETH 30 ML UNIT-DOSE CUP PO PRN (22:56)
[2021-01-03] MEDS ORDERED: IBUPROFEN 400 MG TABLET (FP) PO PRN (22:56)
[2021-01-03] MEDS ORDERED: ACETAMINOPHEN 325 MG TABLET (FP) PO PRN ×2 (22:56)
[2021-01-03] MEDS ORDERED: MENTHOL/PHENOL 1 EACH UD MM PRN (22:56)
[2021-01-03] MEDS ORDERED: ONDANSETRON *ODT* 4 MG TABLET SL PRN (22:56)
[2021-01-03] MEDS ORDERED: methaDONE HCL 10 MG TABLET (FOR DETOX USE ONLY) PO ONE (23:55)
[2021-01-04] MEDS: cloNIDine HCL 0.1 MG TABLET PO PRN ×2 (00:01→07:19)
[2021-01-04] MEDS: hydrOXYzine PAMOATE 25 MG CAPSULE (FP) PO PRN ×2 (00:02→07:19)
[2021-01-04] MEDS: METHOCARBAMOL 500 MG TABLET PO PRN ×2 (00:02→07:19)
[2021-01-04] MEDS ORDERED: LISINOPRIL 20 MG TABLET PO SCH (10:00)
[2021-01-04] MEDS ORDERED: PRENATAL VITAMINS W/ FOLIC ACID TABLET (FP) PO SCH (10:00)
[2021-01-04 10:06] LABS: HEMOGLOBIN 10.6 GM/dL (11.7-16.9); MCH 29.7 pg (25.7-33.7); MEAN CELL VOLUME 90.1 fl (80-96); MEAN PLT VOLUME 7.5 fl (7.5-11.1); PLATELET COUNT 200 10^3/uL (134-434); RBC 3.56 M/mm3 (4.00-5.60); RDW 13.9 % (11.9-15.9)
[2021-01-04 10:28] LABS: ALBUMIN 3.2 g/dl (3.4-5.0); CALCIUM 8.2 mg/dL (8.5-10.1)
[2021-01-04 10:29] LABS: BLOOD UREA NITROGEN 10.4 mg/dL (7-18)
[2021-01-04 10:32] LABS: CREATININE 0.9 mg/dL (0.55-1.3)
[2021-01-04 10:33] LABS: TOT PROT 5.9 g/dl (6.4-8.2)
[2021-01-04 10:38] LABS: BILIRUBIN,TOTAL 0.9 mg/dL (0.2-1)
[2021-01-04] MEDS ORDERED: methaDONE HCL 10 MG TABLET (FOR DETOX USE ONLY) PO ONE (12:27)
[2021-01-04] MEDS: diazePAM 5 MG TABLET PO PRN ×2 (13:19→19:46)
[2021-01-04 21:34] VITALS: TEMP 96.9
[2021-01-04] MEDS ORDERED: THIAMINE HCL 100 MG TABLET (FP) PO SCH (22:00)
[2021-01-04] MEDS ORDERED: MELATONIN 5 MG TABLETS PO SCH (22:00)
[2021-01-05] MEDS: diazePAM 5 MG TABLET PO PRN (02:21)
[2021-01-05 08:25] VITALS: BP 139/86; PULSE 71
[2021-01-05] MEDS ORDERED: methaDONE HCL 10 MG TABLET (FOR DETOX USE ONLY) PO ONE ×2 (10:00)
[2021-01-06] MEDS ORDERED: methaDONE HCL 10 MG TABLET (FOR DETOX USE ONLY) PO ONE (10:00)
[2021-01-07] MEDS ORDERED: methaDONE HCL 10 MG TABLET (FOR DETOX USE ONLY) PO ONE (10:00)
== END 2021-01-05 08:32 | disposition left against medical advice (07) | DRG 770 ==
LOC: YASAS 18:37 → Y3N 23:19
PROVIDERS: ADMIT Allergy & Immunology; ATTEND Allergy & Immunology
PROC: HZ2ZZZZ Detoxification Services for Substance Abuse Treatment (ICD-10-PCS; principal; 2021-01-03)
DX: F11.23 Opioid dependence with withdrawal (principal); F14.20 Cocaine dependence, uncomplicated; F17.210 Nicotine dependence, cigarettes, uncomplicated; I10 Essential (primary) hypertension; Z59.0 Homelessness
CPT/HCPCS: 36415; 80053; 85027; 86780; C9803; J0735; U0003; U0005